=== PATIENT | male | born 1955 | race Caucasian/White ===

== ENCOUNTER 2018-10-17 09:35 | Emergency (ER) | payer MEDICARE ==
[~2018-10-17] VITALS: Ht 180.3 cm; Wt 83.9 kg
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
--- NOTE | 2018-10-17 10:05 | NUR ---
SEEN AND EXAMINED BY DR. BROWNE.
--- NOTE | 2018-10-17 10:07 | NUR ---
DOWNTIME ORDERS: CT HEAD AND FACE; CALLED RADIOLOGY, SPOKE TO RAMESH.
--- NOTE | 2018-10-17 10:08 | NUR ---
WOUND CLEANING DONE BY FRICTION SAW OPERATOR.
[2018-10-17] MEDS ORDERED: IBUPROFEN 400 MG TABLET ONE (10:09)
[2018-10-17] MEDS ORDERED: TDAP [DIPH/PERTUSSIS/TET] 0.5 ML VIAL IM ONE (10:10)
--- NOTE | 2018-10-17 10:11 | NUR ---
TDAP IM GIVEN AT R DELTOID, IBUPROFEN 800MG PO GIVEN.
--- NOTE | 2018-10-17 10:59 | NUR ---
CT SCAN OF FACE AND HEAD DONE, AWAITING RESULTS.
--- NOTE | 2018-10-17 13:20 | NUR ---
SEMAJ TOLEDO AT BEDSIDE FOR EVAL.
--- NOTE | 2018-10-17 13:30 | NUR ---
Patient given written and verbal discharge instructions. Patient verbalizes understanding of instructions. Patient is ambulatory with steady gait. Patient given list of available shelters in surrounding area and tap card for bus pass.
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
[2018-10-17 13:34] VITALS: BP 140/82
== END 2018-10-17 14:11 ==
LOC: ER 09:38
DX: S01.412A Laceration without foreign body of left cheek and temporomandibular area, initial encounter (principal); E11.9 Type 2 diabetes mellitus without complications; I10 Essential (primary) hypertension; Y04.8XXA Assault by other bodily force, initial encounter; Y93.89 Activity, other specified; Y92.830 Public park as the place of occurrence of the external cause; Y99.8 Other external cause status
CPT/HCPCS: 12011; 70450; 70486; 90471; 90715; 99285; A4606; A6402; A6403